=== PATIENT | male | born 1975 | race Caucasian/White ===

== ENCOUNTER 2018-10-26 04:38 | Emergency (ER) | payer OTHER ==
[~2018-10-26] VITALS: Ht 167.6 cm; Wt 82.7 kg
[2018-10-26 04:44] VITALS: Ht 167.6 cm; Wt 82.7 kg
--- NOTE | 2018-10-26 06:13 | ERD ---
ER Documentation Chief Complaint Chief Complaint cp with palpitations; today-awoken HPI This is a 43-year-old male with a history of diabetes who presents to the ER for evaluation of heart palpitations. The patient states that he has had heart palpitations on and off for the past 6 weeks. He states they are worse at night and states that when he lays flat he sometimes feels his heart race for a few seconds. The patient is currently denying any chest pain or shortness of breath or nausea or vomiting or headache or abdominal pain associated with his symptoms. He denies any aggravating or relieving factors at this time and came to the ER for evaluation ROS All systems reviewed and are negative except as per history of present illness. PMhx/Soc Medical and Surgical Hx: pt denies Surgical Hx History of Surgery: No Anesthesia Reaction: No Hx Alcohol Use: Yes Hx Substance Use: No Hx Tobacco Use: No Smoking Status: Never smoker Physical Exam Vitals Vital Signs Date Temp Pulse Resp B/P (MAP) Pulse Ox O2 O2 Flow FiO2 Time Delivery Rate 10/26/18 97.9 78 18 112/76 98 Room Air 06:00 (88) 10/26/18 98.2 70 19 135/71 95 04:44 (92) Physical Exam INITIAL VITAL SIGNS: Reviewed by me GENERAL: The patient is well developed and appropriate for usual state of health in no apparent distress HEENT: Pupils equal, round, and reactive to light. EOMI. There is no scleral icterus. NECK: C-spine is soft and supple, there is no meningismus. There is no cervical lymphadenopathy. LUNGS: Clear to auscultation bilaterally. There are no rales, wheezes or rhonchi. HEART: Regular rate and rhythm, no murmurs, clicks, rubs or gallops. ABDOMEN: Soft, non-tender, non-distended. There are bowel sounds in all four quadrants. No rebound or guarding. EXTREMITIES: There is no peripheral cyanosis or edema. No focal swelling or erythema. NEUROLOGICAL: The patient moves all four extremities with 5/5 strength. Cranial nerves II - XII are intact. Normal gait. Alert and oriented SKIN: There is no apparent rash or petechiae. HEME/LYMPHATIC: There is no evidence of excessive bruising or lymphedema. PSYCHIATRIC: The patient does not appear anxious or depressed. Result Diagram: 10/26/18 0502 10/26/18 0502 Results 24 hrs Laboratory Tests Test 10/26/18 05:02 White Blood Count 6.3 10^3/ul Red Blood Count 5.28 10^6/ul Hemoglobin 15.5 g/dl Hematocrit 45.2 % Mean Corpuscular Volume 85.6 fl Mean Corpuscular Hemoglobin 29.4 pg Mean Corpuscular Hemoglobin Concent 34.3 g/dl Red Cell Distribution Width 11.9 % Platelet Count 186 10^3/UL Mean Platelet Volume 10.6 fl Immature Granulocytes % 0.300 % Neutrophils % 52.9 % Lymphocytes % 34.6 % Monocytes % 8.7 % Eosinophils % 3.2 % Basophils % 0.3 % Nucleated Red Blood Cells % 0.0 /100WBC Immature Granulocytes # 0.020 10^3/ul Neutrophils # 3.4 10^3/ul Lymphocytes # 2.2 10^3/ul Monocytes # 0.6 10^3/ul Eosinophils # 0.2 10^3/ul Basophils # 0.0 10^3/ul Nucleated Red Blood Cells # 0.0 10^3/ul Sodium Level 140 mmol/L Potassium Level 4.2 mmol/L Chloride Level 105 mmol/L Carbon Dioxide Level 25 mmol/L Anion Gap 10 Blood Urea Nitrogen 27 mg/dl Creatinine 0.85 mg/dl Est Glomerular Filtrat Rate mL/min > 60 mL/min Glucose Level 123 mg/dl Calcium Level 9.4 mg/dl Troponin I < 0.012 ng/ml Procedures/[facility] Chest X-ray 1V Interpreted by me: Soft Tissue: No acute abnormalities Bones: No acute abnormalities Mediastinum/Cardiac Silhouette/Lungs: [No acute abnormalities] EKG: Rate/Rhythm: [Normal Sinus Rhythm] QRS, ST, T-waves: [No changes consistent w/ acute ischemia] Impression: [No evidence of ischemia or arrhythmia] This 43-year-old male presents the ER for evaluation of her palpitations. On my exam the patient is afebrile, nontoxic-appearing and hemodynamically stable. He is not complaining of any active chest pain. I have reviewed the patient's EKG which shows normal sinus rhythm with no ST elevation or ST depressions or signs of acute ischemia. His rhythm strip was also interpreted on the monitor and shows normal sinus rhythm. He has remained stable in the emergency room. Chest x-ray reveals no signs of infiltrate, lab work is normal including a troponin level. He is not complaining of any palpitations at this time and I advised him that he would likely benefit from outpatient Holter monitor for evaluation of his heart palpitations. He does say his primary care physician is Kevyn Clay and he states he can follow-up with him. He was advised to return to the ER at any moment for reevaluation and he verbalized understanding. Differential diagnoses entertained was broad with potential high acuity. Patient has been evaluated for acute myocardial infarction, unstable angina, aortic dissection, pulmonary embolism, other intrathoracic and cardiac concerns. Ultimately the patient's evaluation is nondiagnostic. Based on the patient's lack of risk factors, as well as the patient's clinical, laboratory, and imaging data, the patient appears to be low risk for these high risk causes of chest pain. Departure Diagnosis: Primary Impression: Palpitations with regular cardiac rhythm Condition: ARJUN Salazar DO Oct 26, 2018 06:13
[2018-10-26 06:30] VITALS: BP 114/79; PULSE 77; RESP 16
== END 2018-10-26 06:30 | disposition home or self-care (01) ==
LOC: E/R 04:38
DX: R00.2 Palpitations (principal); E11.9 Type 2 diabetes mellitus without complications
CPT/HCPCS: 36415; 71045; 80048; 84484; 85025; 93005; Z7502; Z7610

== ENCOUNTER 2019-01-15 16:57 | Emergency (ER) | payer OTHER ==
[~2019-01-15] VITALS: Ht 167.6 cm; Wt 85.0 kg
[2019-01-15 17:03] VITALS: BP 119/76; PULSE 88; RESP 18; Ht 167.6 cm; Wt 85.0 kg
== END 2019-01-15 19:08 | disposition home or self-care (01) ==
LOC: FTE 16:57
DX: R20.0 Anesthesia of skin (principal)
CPT/HCPCS: 82962; 93005; Z7502